=== PATIENT | male | born 1950 | race Caucasian/White ===

== ENCOUNTER → 2018-02-17 | Outpatient (CLI) | payer MEDICARE | LOC: M CLY 11:21 | DX: I51.7 Cardiomegaly (principal); I48.1 Persistent atrial fibrillation | CPT/HCPCS: 71046 ==

== ENCOUNTER → 2018-02-17 | Outpatient (REF) | payer MEDICARE ==
[2018-02-17 16:59] LABS: BASO % 0.8 % (0.0-1.0); EOS # 0.2 10^3/uL (0.0-0.50); EOS % 3.2 % (0.0-3.0); HEMATOCRIT 48.1 % (42.0-52.0); HEMOGLOBIN 15.8 g/dl (13.5-17.5); IMMATURE GRANULOCYTE % 0.2 % (0-3.0); LYMPH # 1.4 10^3/uL (1.5-4.5); LYMPH % 26.7 % (24.0-44.0); MEAN CORPUSCULAR HEMOGLOBIN 28.4 pg (27.0-33.0); MEAN CORPUSCULAR HGB CONC 32.8 g/dl (32.0-36.5); MEAN CORPUSCULAR VOLUME 86.4 fl (80.0-96.0); MONO # 0.5 10^3/uL (0.0-0.8); MONO % 9.7 % (0.0-5.0); NEUTROPHILS # 3.1 10^3/uL (1.8-7.7); NEUTROPHILS % 59.4 % (36.0-66.0); PLATELET COUNT, AUTOMATED 189 10^3/uL (150-450); RED BLOOD COUNT 5.57 10^6/uL (4.30-6.10); RED CELL DISTRIBUTION WIDTH 12.6 % (11.5-14.5); WHITE BLOOD COUNT 5.3 10^3/uL (4.0-10.0)
[2018-02-17 17:37] LABS: ALBUMIN 3.7 GM/DL (3.2-5.2); ALBUMIN/GLOBULIN RATIO 1.28 (1.00-1.93); ALKALINE PHOSPHATASE 81 U/L (45-117); ALT/SGPT 33 U/L (12-78); ANION GAP 8 MEQ/L (8-16); AST/SGOT 15 U/L (7-37); BILIRUBIN,TOTAL 1.1 MG/DL (0.2-1.0); BLOOD UREA NITROGEN 16 MG/DL (7-18); CALCIUM LEVEL 8.7 MG/DL (8.8-10.2); CARBON DIOXIDE LEVEL 30 MEQ/L (21-32); CHLORIDE LEVEL 108 MEQ/L (98-107); CHOLESTEROL LEVEL 160 MG/DL (<200); CHOLESTEROL RISK RATIO 3.478 (<5); CREATININE FOR GFR 1.06 MG/DL (0.70-1.30); GLOMERULAR FILTRATION RATE > 60.0 (>49); GLUCOSE, FASTING 81 MG/DL (70-100); HDL CHOLESTEROL 46 MG/DL (>40); NON-HDL-C 114 MG/DL; POTASSIUM SERUM 4.3 MEQ/L (3.5-5.1); SODIUM LEVEL 146 MEQ/L (136-145); THYROID STIMULATING HORMONE 0.842 uIU/ML (0.358-3.740); TOTAL PROTEIN 6.6 GM/DL (6.4-8.2); TRIGLYCERIDES LEVEL 155 MG/DL (<150)
== END ==
LOC: M SFHCCLAY 11:03
DX: I48.1 Persistent atrial fibrillation (principal); M41.25 Other idiopathic scoliosis, thoracolumbar region; Z13.220 Encounter for screening for lipoid disorders; Z86.79 Personal history of other diseases of the circulatory system; G47.31 Primary central sleep apnea
CPT/HCPCS: 84443

== ENCOUNTER → 2018-04-11 | Outpatient (REF) | payer MEDICARE ==
[2018-04-11 12:39] LABS: NT-PRO BNP 191 PG/ML (<125)
== END ==
LOC: M LABDRAWC 11:18
DX: I51.7 Cardiomegaly (principal)
CPT/HCPCS: 83880

== ENCOUNTER 2018-06-19 05:55 | Day surgery (SDC) | payer MEDICARE ==
[2018-06-19] MEDS: LR 1,000 ML IV (06:46)
[2018-06-19] MEDS ORDERED: PROPOFOL 200 MG/20 ML VIAL As Ordered (07:15)
[2018-06-19] MEDS ORDERED: dexameTHASONE 4 MG/ML 1ML VIAL (J1100) As Ordered (07:15)
[2018-06-19] MEDS ORDERED: LIDOCAINE 2% INJ 100 MG/5 ML SDV (FOR ANES.) As Ordered (07:15)
[2018-06-19] MEDS ORDERED: ROCURONIUM BROMIDE 50 MG/5 ML VIAL As Ordered ×2 (07:15→08:17)
[2018-06-19] MEDS ORDERED: MIDAZOLAM INJ 2 MG/2 ML VIAL (J2250) As Ordered (07:16)
[2018-06-19] MEDS ORDERED: fentaNYL 100 MCG/2 ML INJECTION (J3010) As Ordered (07:16)
[2018-06-19] MEDS ORDERED: METOPROLOL SUCC *XL* 25MG TAB (TopROL *XL*) As Ordered (07:27)
[2018-06-19] MEDS: METOPROLOL SUCC *XL* 25MG TAB (TopROL *XL*) PO (07:29)
[2018-06-19] MEDS: ceFAZolin SOD 1 GM in D5W MINI-BAG PLUS 50 ML IV (07:50)
[2018-06-19] MEDS ORDERED: PHENYLephrine HCL 500 MCG/5 ML (100MCG/ML) SYRINGE (J2370) As Ordered (08:08)
[2018-06-19] MEDS ORDERED: ePHEDrine SULFATE 25 MG/5 ML(5MG/ML) SYRINGE As Ordered (08:08)
[2018-06-19] MEDS: BUPIVACAINE/EPIN 0.25% 30 ML VIAL As Ordered (08:18)
[2018-06-19] MEDS ORDERED: SUGAMMADEX SODIUM 500 MG/5 ML VIAL (BRIDION) As Ordered (09:04)
[2018-06-19] MEDS ORDERED: KETOROLAC 60 MG/2 ML VIAL (J1885) As Ordered (09:04)
[2018-06-19] MEDS ORDERED: ONDANSETRON 4MG/2ML VIAL (J2405) As Ordered (09:04)
[2018-06-19] MEDS ORDERED: LR 1,000 ML IV ×2 (09:30)
[2018-06-19] MEDS ORDERED: METOCLOPRAMIDE INJ 10MG/2ML VIAL (J2765) IV (09:30)
[2018-06-19] MEDS ORDERED: ONDANSETRON 4MG/2ML VIAL (J2405) IV ×2 (09:30)
[2018-06-19] MEDS ORDERED: PERCOCET 5MG/325MG TAB PO (09:30)
[2018-06-19] MEDS ORDERED: NORCO, ANEXSIA 5/325MG TABLET (HYDROcodone/ACETAMINOPHEN) PO (09:30)
[2018-06-19] MEDS ORDERED: fentaNYL 100 MCG/2 ML INJECTION (J3010) IV (09:30)
[2018-06-19] MEDS ORDERED: MORPHINE 4 MG/ML 1ML VIAL/SYRINGE (J2270) IV (09:30)
== END 2018-06-19 12:21 | disposition home or self-care (01) ==
LOC: M SDC 05:55
DX: K40.90 Unilateral inguinal hernia, without obstruction or gangrene, not specified as recurrent (principal); I48.91 Unspecified atrial fibrillation; G47.30 Sleep apnea, unspecified; Z88.1 Allergy status to other antibiotic agents; Z79.899 Other long term (current) drug therapy
CPT/HCPCS: 49650

== ENCOUNTER → 2018-09-13 | Outpatient (CLI) | payer MEDICARE ==
[~2018-09-13] MED LIST: ASPI325T25 PO; METO1TAB32 PO
--- NOTE | 2018-09-13 18:49 | REP ---
Thyroid ultrasound: The studies performed because of a thyroid nodule identified on outside CT scan. The CT scan is not available for review. The thyroid right lobe measures 6.1 x 1.9 x 2.1 cm. The thyroid left lobe measures 5.8 x 1.8 x 2.1 cm. The thyroid isthmus measures 5.5 mm thickness. The thyroid gland is diffusely enlarged. Right lobe: At the lower pole right lobe there is a larger solid mass measuring 3.1 x 1.5 x 2.0 cm. On the images presented M unable to determine whether this is extrathyroidal. Additionally, there is a second 5 mm heterogeneous nodule in the lower pole of the right lobe. Left lobe: There is a 3 mm hypoechoic nodule at the lower pole. There is a hypoechoic 3.6 mm nodule at the mid to lower pole. The thyroid parenchyma is otherwise homogeneous. Impression: There is a large solid mass at the lower pole of the right lobe measuring up to 3.1 cm. This may be extrathyroidal M unable to make this determination on the basis of the images presented. There are small nodules as described. Electronically Signed by Amor Adames MD 09/13/2018 06:41 P
== END ==
LOC: M RAD 08:50
PROVIDERS: ATTEND Family Medicine
DX: E04.1 Nontoxic single thyroid nodule (principal); R93.89 Abnormal findings on diagnostic imaging of other specified body structures

== ENCOUNTER → 2018-10-09 | Outpatient (CLI) | payer MEDICARE ==
[~2018-10-09] MED LIST changes: +ASPI-255 PO; -ASPI325T25 PO; +LIDOCAINE 1% MDV 20ML VIAL As Ordered ONE
--- NOTE | 2018-10-09 17:35 | REP ---
ULTRASOUND GUIDED RIGHT THYROID BIOPSY The procedure was performed under the direct supervision of Dr. Sparks. The patient has a history of a large solid mass at the lower pole of the right thyroid lobe measuring 3.1 cm seen on a previous ultrasound dated 09/13/2018. The risks and benefits of the procedure were explained to the patient and informed consent was obtained. The right thyroid nodule was localized using ultrasound guidance. The skin was prepped and draped in a sterile fashion. 1% lidocaine was used as a local anesthetic. Using ultrasound guidance four fine-needle aspirations were obtained using 25 gauge needles. The patient tolerated the procedure well and there were no immediate complications. After the appropriate amount of monitored convalescence the patient was discharged from the department. Reviewed by ARIA Farmer 10/09/2018 04:23 P Electronically Signed by Zeferino Sparks MD 10/09/2018 05:25 P
== END ==
LOC: M RADPRO 12:20
PROVIDERS: ATTEND Otolaryngology
DX: E04.1 Nontoxic single thyroid nodule (principal)

== ENCOUNTER → 2019-04-12 | Outpatient (REF) | payer MEDICARE ==
[~2019-04-12] MED LIST changes: -LIDOCAINE 1% MDV 20ML VIAL As Ordered ONE
[2019-04-12 17:14] LABS: FREE T4 1.01 NG/DL (0.76-1.46); THYROID STIMULATING HORMONE 1.02 uIU/ML (0.358-3.740)
== END ==
LOC: M LABDRAWC 16:30
PROVIDERS: ATTEND Otolaryngology
DX: R22.1 Localized swelling, mass and lump, neck (principal); Z79.82 Long term (current) use of aspirin

== ENCOUNTER → 2019-05-04 | Outpatient (CLI) | payer MEDICARE ==
--- NOTE | 2019-05-04 13:57 | REP ---
Clinical: Swelling. Real time maciel scale and color evaluation using linear high frequency transducer. Comparison: 09/13/2018. Findings: Right thyroid lobe measures 6.1 x 2.4 x 2.1 cm and includes 4 x 5 x 6 mm complex mid pole cyst along with 3.1 x 1.7 x 2.4 cm complex lower pole nodule and few scattered small nonspecific cysts approximately 2-3 mm. Left lobe measures 5.7 x 1.9 x 2.1 cm and includes 5 x 4 x 5.5 mm posterior lower pole nodule and 2 mm mid pole cyst. Impression: Enlarged thyroid gland with stable cysts/nodules. Electronically Signed by Josh Noel MD 05/04/2019 01:50 P
== END ==
LOC: M RAD 12:44
PROVIDERS: ATTEND Otolaryngology
DX: E04.1 Nontoxic single thyroid nodule (principal)

== ENCOUNTER → 2019-12-21 | Outpatient (CLI) | payer MEDICARE ==
--- NOTE | 2019-12-21 09:58 | REP ---
RIGHT ANKLE SERIES: Four views. HISTORY: Intractable right heel pain. FINDINGS: Four views right ankle show an intact ankle mortise. No erosive changes seen. No evidence of arthropathy. There is a fairly large os trigonum. The calcaneus is unremarkable. The Achilles tendon contour is smooth. There is some soft tissue edema in the pre-Achilles fat. This should be correlated with physical exam findings. IMPRESSION: No acute bony abnormality. Fairly large os trigonum. Soft tissue edema in the pre-Achilles fat. No plain radiographic evidence of Achilles tendinopathy. Correlation with clinical exam findings and/or MRI scanning could be considered. Electronically Signed by Zeferino Sparks MD 12/21/2019 12:47 P
== END ==
LOC: M CLY 08:14
PROVIDERS: ATTEND Family Medicine
DX: M79.671 Pain in right foot (principal)

== ENCOUNTER → 2020-06-04 | Outpatient (CLI) | payer MEDICARE ==
--- NOTE | 2020-06-04 16:14 | REP ---
INDICATION: THYROID NODULE. COMPARISON: 05/04/2019 FINDINGS: The thyroid gland is unchanged in size, shape, and echo pattern. The right lobe measures 6.1 x 2.4 x 2.1 cm and the left lobe measures 5.7 x 1.9 x 2.1 cm. The isthmus measures between 6 and 7 mm. The dominant mixed echo nodule seen in the right lobe inferiorly is unchanged. It is predominantly solid. It measures approximately 3.1 x 1.7 x 2.4 cm. Other much smaller sub cm sized scattered nodules are also seen and they are also unchanged. IMPRESSION: No significant change. <Electronically signed by Yared Felix > 06/04/20 [id number]
== END ==
LOC: M RAD 09:51
PROVIDERS: ATTEND Family Medicine
DX: E04.1 Nontoxic single thyroid nodule (principal)

== ENCOUNTER → 2020-06-20 | Outpatient (REF) | payer MEDICARE ==
[2020-06-20 12:07] LABS: BASO % 0.4 % (0.0-1.0); EOS # 0.1 10^3/uL (0.0-0.5); EOS % 2.5 % (0.0-3.0); HEMATOCRIT 47.1 % (42.0-52.0); HEMOGLOBIN 14.8 g/dl (13.5-17.5); LYMPH # 1.5 10^3/uL (1.5-5.0); LYMPH % 30.2 % (24.0-44.0); MEAN CORPUSCULAR HEMOGLOBIN 27.5 pg (27.0-33.0); MEAN CORPUSCULAR HGB CONC 31.4 g/dl (32.0-36.5); MEAN CORPUSCULAR VOLUME 87.4 fl (80.0-96.0); MONO # 0.5 10^3/uL (0.0-0.8); MONO % 10.6 % (0.0-5.0); NEUTROPHILS # 2.7 10^3/uL (1.5-8.5); NEUTROPHILS % 56.1 % (36.0-66.0); PLATELET COUNT, AUTOMATED 193 10^3/uL (150-450); RED BLOOD COUNT 5.39 10^6/uL (4.30-6.10); WHITE BLOOD COUNT 4.8 10^3/uL (4.0-10.0)
[2020-06-20 12:30] LABS: ERYTHROCYTE SEDIMENTATION RATE 2 mm/hr (0-20)
[2020-06-20 12:48] LABS: ALBUMIN 3.7 GM/DL (3.2-5.2); ALT/SGPT 34 U/L (12-78); BILIRUBIN,TOTAL 0.7 MG/DL (0.2-1.0); BLOOD UREA NITROGEN 17 MG/DL (7-18); CALCIUM LEVEL 8.9 MG/DL (8.8-10.2); CARBON DIOXIDE LEVEL 31 MEQ/L (21-32); CHLORIDE LEVEL 107 MEQ/L (98-107); CHOLESTEROL LEVEL 194 MG/DL (<200); CHOLESTEROL RISK RATIO 3.959 (<5); GLOMERULAR FILTRATION RATE > 60.0 (>49); GLUCOSE, FASTING 86 MG/DL (70-100); HDL CHOLESTEROL 49 MG/DL (>40); LDL CHOLESTEROL 110 MG/DL (<100); NON-HDL-C 145 MG/DL; POTASSIUM SERUM 4.3 MEQ/L (3.5-5.1); RHEUMATOID FACTOR QUANT < 10.0 IU/ML (<15.0); SODIUM LEVEL 141 MEQ/L (136-145); TOTAL PROTEIN 6.6 GM/DL (6.4-8.2); TRIGLYCERIDES LEVEL 175 MG/DL (<150)
[2020-06-22 20:06] LABS: ANA (HEP2) Negative (.); CYCLIC CITRULLINATED PEPTIDE 5 units (0-19)
== END ==
LOC: M SFHCCLAY 08:26
PROVIDERS: ATTEND Family Medicine
DX: E78.2 Mixed hyperlipidemia (principal); E04.1 Nontoxic single thyroid nodule; M79.641 Pain in right hand; M79.642 Pain in left hand

== ENCOUNTER → 2020-06-20 | Outpatient (CLI) | payer MEDICARE ==
--- NOTE | 2020-06-20 09:01 | REP ---
INDICATION: M79.641,M79.642, BILATERAL HAND PAIN COMPARISON: None. TECHNIQUE: There are four views of each hand. FINDINGS: There is joint space narrowing of the PIP articulations bilaterally suggestive of early osteoarthritic change. 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 The MCP articulations and carpal articulations are unremarkable bilaterally. There are no calcifications. No fracture or dislocation. IMPRESSION: Bilateral osteoarthritis as described. <Electronically signed by Amor Adames > 06/20/20 [id number]
== END ==
LOC: M CLY 08:35
PROVIDERS: ATTEND Family Medicine
DX: M19.041 Primary osteoarthritis, right hand (principal); M19.042 Primary osteoarthritis, left hand; M79.641 Pain in right hand; M79.642 Pain in left hand

== ENCOUNTER → 2020-10-21 | Outpatient (CLI) | payer MEDICARE | LOC: M PLARAD 08:41 | PROVIDERS: ATTEND Family Medicine | DX: M41.25 Other idiopathic scoliosis, thoracolumbar region (principal); M51.06 Intervertebral disc disorders with myelopathy, lumbar region; Z53.8 Procedure and treatment not carried out for other reasons ==

== ENCOUNTER → 2020-10-23 | Outpatient (CLI) | payer MEDICARE ==
--- NOTE | 2020-10-23 13:15 | REP ---
INDICATION: SCOLIOSIS. COMPARISON: None. TECHNIQUE: Sagittal T1, T2, STIR, axial T1 and T2 weighted MR images of the lumbar spine are acquired. FINDINGS: There is moderate multilevel degenerative disc disease with loss of disc height and disc desiccation seen diffusely throughout the lumbar spine. Vertebral heights are preserved. No lobo malalignments. The conus ends normally at L1 level. On the sagittal T2 weighted images, no significant canal stenosis. On the review of axial images, there is a left convex lumbar curvature. At L1-2 no significant canal or foraminal narrowing. At L2-3 loss of disc height with mild canal narrowing and moderate bilateral foraminal narrowing. At L3-4 diffuse disc bulge with darj-st-tekbcadw canal narrowing and jads-jt-pehldnlu bilateral foraminal narrowing. At L4-5 diffuse disc bulge with mild canal narrowing and moderate bilateral foraminal narrowing. At L5-S1 loss of disc height with qhindine-qg-gvytdy left and moderate right foraminal narrowing and qvlz-kd-kqdhmble canal stenosis. IMPRESSION: 1. Left convex lumbar curvature. 2. Moderate multilevel degenerative disc disease. 3. No significant canal stenosis. 4. Multilevel foraminal narrowing is biiz-mh-wtfrfftm from L1-2 through L4-5. 5. At L5-S1 loss of disc height results in greater foraminal narrowing, moderate on the right and rvnwuuld-th-xomaag on the left. <Electronically signed by Saud Renee > 10/23/20 [id number]
== END ==
LOC: M RAD 11:20
PROVIDERS: ATTEND Family Medicine
DX: M41.25 Other idiopathic scoliosis, thoracolumbar region (principal); M51.06 Intervertebral disc disorders with myelopathy, lumbar region

== ENCOUNTER → 2020-12-16 | Outpatient (CLI) | payer MEDICARE ==
--- NOTE | 2020-12-16 12:27 | REP ---
INDICATION: NODULE. COMPARISON: 06/04/2020 TECHNIQUE: Bilateral thyroid ultrasound FINDINGS: Right lobe of the thyroid gland measures 6.3 x 2.2 x 2.4 cm and the left lobe measures 4.7 x 1.6 x 1.3 cm. The isthmus measures 9 mm. There is no significant change in the size of the thyroid gland when compared to the prior exam. Once again, there is a solid nodule in the inferior pole the right lobe which today measures 3.3 x 2.7 x 1.9 cm previously 2.7 x 1.6 x 2.7 cm. This has not changed significantly. The smaller anechoic structure seen previously is unchanged. The tiny cystic structure seen previously in the left lobe is not seen today. IMPRESSION: Essentially no change with findings as described above. <Electronically signed by Yared Felix > 12/16/20 [id number]
== END ==
LOC: M RAD 10:18
PROVIDERS: ATTEND Family Medicine
DX: E04.1 Nontoxic single thyroid nodule (principal)

== ENCOUNTER → 2021-05-18 | Outpatient (CLI) | payer MEDICARE | LOC: M LABSMTC 10:18 | PROVIDERS: ATTEND Anesthesiology | DX: Z01.818 Encounter for other preprocedural examination (principal); Z11.52 Encounter for screening for COVID-19 ==

== ENCOUNTER 2021-05-22 07:21 | Day surgery (SDC) | payer MEDICARE ==
[~2021-05-22] VITALS: Ht 193 cm; Wt 93.9 kg
[~2021-05-22 07:21] MED LIST changes: +NS 1,000 ML IV ONE
--- OUTSIDE RECORDS SUMMARY | 2021-05-22 07:25 | CCD ---
Author Author [facility] Organization [facility] Address Unknown Phone Unavailable Support Name Relationship Address Phone RE Next Of Kin Unknown Unavailable SELF EMPLOYED Next Of Kin [address] [place] [address] [employer] Next Of Kin [address] [place], [place] [address] [employer] Next Of Kin [address] [place] [address] DENNIS OROZCO Next Of Kin Unknown [phone] [employer] Next Of Kin [address] [place] [address] HENIR JAZMINEAGRET Next Of Kin [address] [place] [address] HenirJazmineagret ECON [address] [place] [address] Unavailable Re-disclosure Warning The records that you are about to access may contain information from federally-assisted alcohol or drug abuse programs. If such information is present, then the following federally mandated warning applies: This information has been disclosed to you from records protected by federal confidentiality rules (42 CFR part 2). The federal rules prohibit you from making any further disclosure of this information unless further disclosure is expressly permitted by the written consent of the person to whom it pertains or as otherwise permitted by 42 CFR part 2. A general authorization for the release of medical or other information is NOT sufficient for this purpose. The Federal rules restrict any use of the information to criminally investigate or prosecute any alcohol or drug abuse patient.The records that you are about to access may contain highly sensitive health information, the redisclosure of which is protected by Article 27-F of the [facility] Public Health law. If you continue you may have access to information: Regarding HIV / AIDS; Provided by facilities licensed or operated by the [facility] Office of Mental Health; or Provided by the [facility] Office for People With Developmental Disabilities. If such information is present, then the following [facility] mandated warning applies: This information has been disclosed to you from confidential records which are protected by state law. State law prohibits you from making any further disclosure of this information without the specific written consent of the person to whom it pertains, or as otherwise permitted by law. Any unauthorized further disclosure in violation of state law may result in a fine or fdc sentence or both. A general authorization for the release of medical or other information is NOT sufficient authorization for further disc losure. Family History Family Member Name Family Member Gender Family Member Status Date o f Status Description Data Source(s) Unknown Unknown Problem MEDENT ([facility]) Unknown Male Problem MEDENT ([facility]) Unknown Unknown Problem MEDENT ([facility]) mom, mgf, brothers Encounters Encounter Providers Location Date Indications Data Source(s ) Outpatient [address] [facility] [id number] 12/19/2020 12:00:00 AM EDT eCW1 ([facility]) Unknown [address] [facility] [address] [address] 12/05/2020 12:00:00 AM EDT eCW1 ([facility]) Unknown [address] [facility] [address] [address] 10/23/2020 12:00:00 AM EDT eCW1 ([facility]) Outpatient [address] [facility] [address] [address] 10/02/2020 12:00:00 AM EDT eCW1 ([facility]) Unknown [address] [facility] [address] [address] 09/30/2020 12:00:00 AM EDT eCW1 ([facility]) Unknown [address] [facility] [address] [address] 09/29/2020 12:00:00 AM EDT eCW1 ([facility]) Outpatient [address] [facility] [id number] 06/20/2020 12:00:00 AM EST eCW1 ([facility]) Unknown [address] [facility] [place] [address] 06/04/2020 12:00:00 AM EST eCW1 ([facility]) [place] [address] [facility] [place] [address] 04/11/2020 12:00:00 AM EDT eCW1 ([facility]) Immunizations Vaccine Date Status Description Data Source(s) COVID-19 VACCINE Moderna 05/19/2021 12:00:00 AM EST completed [facility] Vaccine Series Complete: YESThis Data wa s Submitted to [facility] Via [facility]. COVID-19 dose #2 given elsewhere Unspecified 09/08/2020 08:1 2:00 AM EST completed eCW1 ([facility]) COVID-19 VACCINE Moderna 08/27/2020 12:00:00 AM EST completed [facility] Vaccine Series Complete: YESThis Data wa s Submitted to [facility] Via [facility]. COVID-19 VACCINE, MRNA-1273, LNP-S (MODERNA)/PF 08/27/2020 1 2:00:00 AM EST completed [facility] COVID-19 dose #1 given elsewhere Unspecified 08/18/2020 08:1 2:00 AM EST completed eCW1 ([facility]) COVID-19 VACCINE Moderna 07/30/2020 12:00:00 AM EST completed [facility] Vaccine Series Complete: NOThis Data was Submitted to [facility] Via [facility]. COVID-19 VACCINE, MRNA-1273, LNP-S (MODERNA)/PF 07/30/2020 1 2:00:00 AM EST completed [facility] VARICELLA-ZOSTER VIRUS GLYCOPROTEIN E,REC/AS01B ADJUVA NT/PF 07/06/2020 12:00:00 AM EST completed [facility] influenza, recombinant, quadrIvalent,injectable, prese rvative free 04/11/2020 04:44:00 PM EDT completed eCW1 ([facility]) influenza, recombinant, quadrIvalent,injectable, prese rvative free 04/11/2020 04:44:00 PM EDT completed eCW1 ([facility]) influenza, recombinant, quadrIvalent,injectable, prese rvative free 04/11/2020 04:44:00 PM EDT completed eCW1 ([facility]) influenza, recombinant, quadrIvalent,injectable, prese rvative free 04/11/2020 04:44:00 PM EDT completed eCW1 ([facility]) influenza, recombinant, quadrIvalent,injectable, prese rvative free 04/11/2020 04:44:00 PM EDT completed eCW1 ([facility]) influenza, recombinant, quadrIvalent,injectable, prese rvative free 04/11/2020 04:44:00 PM EDT completed eCW1 ([facility]) influenza, recombinant, quadrIvalent,injectable, prese rvative free 04/11/2020 04:44:00 PM EDT completed eCW1 ([facility]) influenza, recombinant, quadrIvalent,injectable, prese rvative free 04/11/2020 04:44:00 PM EDT completed eCW1 ([facility]) influenza, recombinant, quadrIvalent,injectable, prese rvative free 04/11/2020 04:44:00 PM EDT completed eCW1 ([facility]) influenza, recombinant, quadrIvalent,injectable, prese rvative free 04/11/2020 04:44:00 PM EDT completed eCW1 ([facility]) Medications Medication Brand Name Start Date Product Form Dose Route Admi nistrative Instructions Pharmacy Instructions Status Indications Reaction Description Data Source(s) 100 mcg/0.5 mL 05/19/2021 12:00:00 AM EST suspension 0 INJECT DIRECTED PER STANDING ORDER INJECT DIRECTED PER STANDING ORDER SOLD: 05/19/2021 [facility] SUPREP BOWEL PREP KIT 17.5-3.13-1.6 gram SODIUM, POTASSIUM,M AG SULFATES 05/19/2021 12:00:00 AM EST recon soln 354 TAKE PER DOCTO R'S PREP INSTRUCTIONS TAKE PER DOCTOR'S PREP INSTRUCTIONS SOLD: 05/19/2021 [facility] 240 mcg/0.7 mL 04/15/2021 12:00:00 AM EDT syringe 0 DIRECTED INJECTION LEFT ARM DIRECTED INJECTION LEFT ARM SOLD: 04/15/2021 [facility] Suprep Bowel Prep Kit Suprep Bowel Prep Kit 04/14/2021 12:00:00 AM EDT active MEDENT ([facility], ) Bisacodyl 5 MG Delayed Release Oral Tablet [Dulcolax] Dulcol ax 04/14/2021 12:00:00 AM EDT ORAL active M EDENT ([facility], ) Physical Therapy evaluate and treat UNK 09/30/2020 12:00:00 AM EDT active Physical Therapy evaluate and tr eat eCW1 ([facility]) Insurance Providers Payer name Policy type / Coverage type Policy ID Covered libertarian ID Covered libertarian's relationship to selby Policy Selby Plan Information MEDICARE BLUE PPO 306 [id number] SP [id number] EXCELL[employer] BS MEDICARE [id number] [place] [id number] [facility] [id number] [place] [id number] [facility] BCBS MEDICARE [id number] [place] [id number] MEDICARE BLUE PPO 306 [id number] SP [id number] Blue Shield Medicare P [id number] SELF [id number] Blue Shield Medicare P [id number] SELF [id number] Medicare Blue Ppo Commercial [id number] Self [id number] BS Medicare Blue U/W Commercial [id number] Self V [id number] BS Medicare Blue U/W Commercial [id number] Self V [id number] [facility]-Medicare Part B [id number] ANSI-Medicare Part B [id number] ANSI-Medicare Part B [id number] ANSI-Medicare Part B [id number] [facility] MEDICARE Medicare MC MC ANSI-Medicare Part B [id number] ANSI-Medicare Part B [id number] ANSI-Medicare Part B [id number] ANSI-Medicare Part B [id number] ANSI-Medicare Part B [id number] ANSI-Medicare Part B [id number] [facility] Medicare Blue U/W Commercial [id number] Self V [id number] ANSI-Medicare Part B [id number] ANSI-Medicare Part B [id number] BCBS Medicare Blue U/W Commercial [id number] Self V [id number] BCBS Medicare Blue U/W Commercial [id number] Self V [id number] ANSI-Medicare Part B [id number] ANSI-Medicare Part B [id number] ANSI-Medicare Part B [id number] ANSI-Medicare Part B [id number] MEDICARE [id number] SP [id number] MEDICARE BLUE PPO 306 [id number] SP [id number] Medicare Natl Gov't Servi Medicare Primary [id number] Self [id number] MEDICARE BLUE PPO 306 [id number] SP [id number] [facility] [id number] S VYM [id number] MEDICARE BLUE PPO 306 [id number] SP [id number] ANSI-Medicare Part B [id number] ANSI-Medicare Part B [id number] Medicare Blue Ppo Commercial [id number] Self [id number] Problems, Conditions, and Diagnoses Code Display Name Description Problem Type Effective Dates Data Source(s) 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 Prob andrea 09/29/2020 12:00:00 AM EDT eCW1 ([facility]) E78.2 [id number] Mixed hyperlipidemia Problem 06/20/2020 12:0 0:00 AM EST eCW1 ([facility]) Surgeries/Procedures No Information Results ID Date Data Source VIRGILIO HAND COMPLETE 06/20/2020 12:00:00 AM EST eCW1 ([facility]) Name Value Range Interpretation Code Description Data Alice rce(s) Supporting Document(s) eCW1 ([facility]) ID Date Data Source CYCLIC CITRULLINATED PEPTIDE 06/20/2020 12:00:00 AM EST eCW1 ([facility]) Name Value Range Interpretation Code Description Data Alice rce(s) Supporting Document(s) 5 0-19 eCW1 ([facility]) ID Date Data Source PAT TITER & PATTERN 06/20/2020 12:00:00 AM EST eCW1 ([facility]) Name Value Range Interpretation Code Description Data Alice rce(s) Supporting Document(s) Negative . eCW1 ([facility]) ID Date Data Source RHEUMATOID FACTOR QUANT 06/20/2020 12:00:00 AM EST eCW1 ([facility]) Name Value Range Interpretation Code Description Data Alice rce(s) Supporting Document(s) < 10.0 <15.0 eCW1 ([facility]) ID Date Data Source TSH 06/20/2020 12:00:00 AM EST eCW1 ([facility]) Name Value Range Interpretation Code Description Data Alice rce(s) Supporting Document(s) 2.220 0.358-3.740 eCW1 ([facility]) ID Date Data Source LIPID PANEL (CARDIAC RISK) 06/20/2020 12:00:00 AM EST eCW1 ( [facility]) Name Value Range Interpretation Code Description Data Alice rce(s) Supporting Document(s) Cholesterol [Moles/volume] in Serum or Plasma 194 <200 CHOLESTEROL LEVEL eCW1 ([facility]) Triglyceride [Mass/volume] in Serum or Plasma by calculation 175 <150 TRIGLYCERIDES LEVEL eCW1 ([facility]) Cholesterol in LDL [Mass/volume] in Serum or Plasma by calculation 110 <100 LDL CHOLESTEROL eCW1 ([facility]) Cholesterol in HDL [Moles/volume] in Serum or Plasma 49 >40 HDL CHOLESTEROL eCW1 ([facility]) 145 NON-HDL-C eCW1 ([facility]) 3.959 <5 CHOLESTEROL RISK RATIO eCW1 ([facility]) ID Date Data Source ERYTHROCYTE SEDIMENTATION RATE 06/20/2020 12:00:00 AM EST eC W1 ([facility]) Name Value Range Interpretation Code Description Data Alice rce(s) Supporting Document(s) 2 0-20 eCW1 ([facility]) ID Date Data Source C REACTIVE PROTEIN QUANTITATIV (At [facility]) 06/20/2020 12:00 :00 AM EST eCW1 ([facility]) Name Value Range Interpretation Code Description Data Alice rce(s) Supporting Document(s) 0.30 0.00-0.30 eCW1 ([facility]) ID Date Data Source Comprehensive Metabolic Profile (CMP) 06/20/2020 12:00:00 AM EST eCW1 ([facility]) Name Value Range Interpretation Code Description Data Alice rce(s) Supporting Document(s) 86 70-100 GLUCOSE, FASTING eCW1 ([facility]) 0.90 0.70-1.30 CREATININE FOR GFR eCW1 ([facility]) 17 7-18 BLOOD UREA NITROGEN eCW1 ([facility]) > 60.0 >49 GLOMERULAR FILTRATION RATE eCW 1 ([facility]) 141 136-145 SODIUM LEVEL eCW1 ([facility]) 4.3 3.5-5.1 POTASSIUM SERUM eCW1 ([facility]) 107 98-107 CHLORIDE LEVEL eCW1 ([facility]) 31 21-32 CARBON DIOXIDE LEVEL eCW1 ([facility]) 17 7-37 AST/SGOT eCW1 ([facility]) 8.9 8.8-10.2 CALCIUM LEVEL eCW1 ([facility]) 92 45-117 ALKALINE PHOSPHATASE eCW1 ([facility]) 34 12-78 ALT/SGPT eCW1 ([facility]) 6.6 6.4-8.2 TOTAL PROTEIN eCW1 ([facility]) 0.7 0.2-1.0 BILIRUBIN,TOTAL eCW1 ([facility]) 3.7 3.2-5.2 ALBUMIN eCW1 ([facility]) 1.3 ALBUMIN/GLOBULIN RATIO eCW1 ([facility]) ID Date Data Source CBC with Differential 06/20/2020 12:00:00 AM EST eCW1 ([facility]) Name Value Range Interpretation Code Description Data Alice rce(s) Supporting Document(s) 47.1 42.0-52.0 eCW1 ([facility]) 5.39 4.30-6.10 eCW1 ([facility]) 4.8 4.0-10.0 eCW1 ([facility]) 14.8 13.5-17.5 eCW1 ([facility]) 27.5 27.0-33.0 eCW1 ([facility]) 87.4 80.0-96.0 eCW1 ([facility]) 31.4 32.0-36.5 eCW1 ([facility]) 12.3 11.5-14.5 eCW1 ([facility]) 193 150-450 eCW1 ([facility]) 56.1 36.0-66.0 eCW1 ([facility]) 10.6 0.0-5.0 eCW1 ([facility]) 30.2 24.0-44.0 eCW1 ([facility]) 0.4 0.0-1.0 eCW1 ([facility]) 2.5 0.0-3.0 eCW1 ([facility]) 2.7 1.5-8.5 eCW1 ([facility]) 1.5 1.5-5.0 eCW1 ([facility]) 0.5 0.0-0.8 eCW1 ([facility]) 0.1 0.0-0.5 eCW1 ([facility]) 0.0 0.0-0.2 eCW1 ([facility]) Procedure Social History Code Duration Value Status Description Data Source(s ) Smoking 12/19/2020 12:00:00 AM EDT Never Smoker completed Never S moker eCW1 ([facility]) Smoking 10/02/2020 12:00:00 AM EDT Never Smoker completed Never S moker eCW1 ([facility]) Smoking 10/02/2020 12:00:00 AM EDT Never Smoker completed Never S moker eCW1 ([facility]) Smoking 10/02/2020 12:00:00 AM EDT Never Smoker completed Never S moker eCW1 ([facility]) Smoking 10/02/2020 12:00:00 AM EDT Never Smoker completed Never S moker eCW1 ([facility]) Smoking 06/20/2020 12:00:00 AM EST Never Smoker completed Never S moker eCW1 ([facility]) Smoking 06/20/2020 12:00:00 AM EST Never Smoker completed Never S moker eCW1 ([facility]) Vital Signs ID Date Data Source UNK Name Value Range Interpretation Code Description Data Source(s) Systolic blood pressure 108 mm[Hg] 108 mm[Hg] M EDENT ([facility]) Diastolic blood pressure 72 mm[Hg] 72 mm[Hg] [facility] Body height 76 [in_i] 76 [facility] 6'4" Body weight 197.00 [lb_av] 197.00 [lb_av] MEDEN T ([facility]) Body mass index (BMI) [Ratio] 24.0 kg/m2 24.0 k g/m2 [facility] ([facility]) [place] body weight 202 [lb_av] 202 [lb_av] [facility] Body weight 89.359 kg 89.359 kg [facility] ([facility]) Body surface area Derived from formula 2.20 m2 2.20 m2 [facility] ([facility]) Body weight 200.8 [lb_av] 200.8 [lb_av] eCW1 ([facility]) Body height [in_i] eCW1 ([facility]) Body mass index (BMI) [Ratio] 24.44 kg/m2 24.44 kg/m2 eCW1 ([facility]) Heart rate 76 /min 76 /min eCW1 ([facility]) Respiratory rate 16 /min 16 /min eCW1 ([facility]) Body temperature 96.3 [degF] 96.3 [degF] eCW1 ( [facility]) Systolic blood pressure 130 mm[Hg] 130 mm[Hg] e CW1 ([facility]) Diastolic blood pressure 70 mm[Hg] 70 mm[Hg] eCW1 ([facility]) Body weight 204 [lb_av] 204 [lb_av] eCW1 ([facility]) Body height [in_i] eCW1 ([facility]) Body mass index (BMI) [Ratio] 24.83 kg/m2 24.83 kg/m2 eCW1 ([facility]) Heart rate 67 /min 67 /min eCW1 ([facility]) Respiratory rate 16 /min 16 /min eCW1 ([facility]) Body temperature 97.2 [degF] 97.2 [degF] eCW1 ( [facility]) Systolic blood pressure 138 mm[Hg] 138 mm[Hg] e CW1 ([facility]) Diastolic blood pressure 78 mm[Hg] 78 mm[Hg] eCW1 ([facility]) Body weight 201.8 [lb_av] 201.8 [lb_av] eCW1 ([facility]) Body height [in_i] eCW1 ([facility]) Body mass index (BMI) [Ratio] 24.56 kg/m2 24.56 kg/m2 eCW1 ([facility]) Heart rate 57 /min 57 /min eCW1 ([facility]) Respiratory rate 16 /min 16 /min eCW1 ([facility]) Body temperature 95.8 [degF] 95.8 [degF] eCW1 ( [facility]) Systolic blood pressure 112 mm[Hg] 112 mm[Hg] e CW1 ([facility]) Diastolic blood pressure 72 mm[Hg] 72 mm[Hg] eCW1 ([facility]) Patient Treatment Plan of Care Planned Activity Planned Date Details Description Data Source (s) Physical Therapy evaluate and treat 09/30/2020 12:00:00 AM EDT eCW1 ([facility])
--- OUTSIDE RECORDS SUMMARY | 2021-05-22 07:25 | CCD | Continuity of Care Document ---
Author Author Cheng [facility] Organization Unknown Address [address] [place] [address], [address] [place] [address] Phone [phone] Care Team Providers Care Strip Catcher Name Role Phone RaheellizettjoaomacMoose D.O. AUTM [phone] Problems Active Problems Provider Date Mass of neck Ritesh Saavedra MD Onset: 09/28/2018 Allergic rhinitis Ritesh Saavedra MD Onset: 09/28/2018 Deviated nasal septum Ritesh Saavedra MD Onset: 09/28/2018 Acquired coagulation factor deficiency Ritesh Saavedra MD O nset: 09/28/2018 Sleep apnea Ritesh Saavedra MD Onset: 09/28/2018 Inguinal hernia Ezekiel Rose JR, MD Onset: 10/18/2018 Social History Type Date Description Comments Sex Unknown Smokeless Tobacco Never Used Smokeless Tobacco ETOH Use Denies alcohol use Tobacco Use Start: Unknown Denies Smoking Recreational Drug Use Denies Drug Use Allergies and adverse reactions Active Allergies Criticality Reaction | Severity Comments Date Erythromycin Unable to assess criticality RED RAISED BUMPS 02/01/2018 Medications Active Medications SIG Qnty Indications Ordering Provide r Date Suprep Bowel Prep Kit 17.5-3.13-1.6GM/177ML Solution take per doctor's bowel prep instructions. 354ml Z12.1 1 Josr Carias MD 04/14/[address] take 4 tabs by mouth prior to procedure per instructions. 4tabs Z12.11 Josr Carias MD 04/14/2021 Advil 200mg Tablets prn Unknown Zyrtec-D 1t/d prn Unknown Flonase prn Unknown Immunizations Description No Information Available Vital Signs Date Vital Result Comment 04/14/2021 8:49am BP Systolic 108 mmHg BP Diastolic 72 mmHg Height 76 inches 6'4" Weight 197.00 lb BMI (Body Mass Index) 24.0 kg/m2 [place] Body Weight 202 lb Weight 89.359 kg BSA (Body Surface Area) 2.20 m2 10/18/2018 11:20am Height 76 inches 6'4" Weight 214.00 lb BMI (Body Mass Index) 26.0 kg/m2 [place] Body Weight 202 lb Weight 97.070 kg BSA (Body Surface Area) 2.28 m2 Results Description No Information Available Procedures Description No Information Available Medical Devices Description No Information Available Encounters Description No Information Available Assessments Date Code Description Provider 04/14/2021 Z12.11 Encounter for screening for sancho gnant neoplasm of colon KEELY Quintanilla Plan of Treatment 04/14/2021 - KEELY Quintanilla* Z12.11 Encounter for screening for malignant neoplasm of colon * * New Medication:* Suprep Bowel Prep Kit 17.5-3.13-1.6 GM/177ML * Dulcolax 5 mg * New Orders:* Colonoscopy, Ordered: 04/14/21 * Comments:* Will arrange for colonoscopy. Reviewed risks and benefits of the procedure, as well as other options, with the patient. Bowel prep procedure was discussed with patient, as well as risks and side effects associated with the bowel prep. Patient verbalized understanding of all of the above and is in agreement to proceed. Patient will seek medical attention for any acute changes. Will monitor. * Follow up:* As scheduled, sooner if needed. Functional Status Description No Information Available Mental Status Description No Information Available Referrals Refer to Reason for Referral Status Appt Date Thiago Rivera M.D. COLO SCREENING Scheduled 04/14 [facility] [address] [facility], [address] [place] [address] [phone]
[2021-05-22] MEDS ORDERED: propofoL 200 MG/20 ML VIAL As Ordered ONE ×2 (08:01→09:20)
[2021-05-22] MEDS ORDERED: LIDOCAINE 2% 100MG/5ML SDV (FOR ANES.) As Ordered ONE (08:01)
--- NOTE | 2021-05-22 09:39 | ROOR ---
Patient Name: Cheng Alexandre Procedure Date: 05/22/2021 8:50 AM Date of : 1950 Age: 71 Room: [facility] Gender: Male Note Status: Finalized Procedure: Colonoscopy Indications: Screening for colorectal malignant neoplasm Providers: Thiago Rivera MD Referring MD: SHALONDA DUNN DO Requesting Provider: Medicines: Monitored Anesthesia Care Complications: No immediate complications. Procedure: Pre-Anesthesia Assessment: - Prior to the procedure, a History and Physical was performed, and patient medications and allergies were reviewed. The patient is competent. The risks and benefits of the procedure and the sedation options and risks were discussed with the patient. All questions were answered and informed consent was obtained. Patient identification and proposed procedure were verified by the physician, the nurse and the anesthesiologist in the procedure room. Mental Status Examination: alert and oriented. Airway Examination: normal oropharyngeal airway and neck mobility. Respiratory Examination: clear to auscultation. CV Examination: normal. Prophylactic Antibiotics: The patient does not require prophylactic antibiotics. Prior Anticoagulants: The patient has taken no previous anticoagulant or antiplatelet agents. ASA Grade Assessment: II - A patient with mild systemic disease. After reviewing the risks and benefits, the patient was deemed in satisfactory condition to undergo the procedure. The anesthesia plan was to use monitored anesthesia care (MAC). Immediately prior to administration of medications, the patient was re-assessed for adequacy to receive sedatives. The heart rate, respiratory rate, oxygen saturations, blood pressure, adequacy of pulmonary ventilation, and response to care were monitored throughout the procedure. The physical status of the patient was re-assessed after the procedure. The Colonoscope was introduced through the anus and advanced to the terminal ileum, with identification of the appendiceal orifice and IC valve. The colonoscopy was performed without difficulty. The patient tolerated the procedure well. The quality of the bowel preparation was good. The terminal ileum, ileocecal valve, appendiceal orifice, and rectum were photographed. Scope insertion time was 2 minutes. Scope withdrawal time was 9 minutes. The total duration of the procedure was 12 minutes. Findings: The perianal and digital rectal examinations were normal. The terminal ileum appeared normal. Six sessile polyps were found in the recto-sigmoid colon, ascending colon and cecum. The polyps were 5 to 12 mm in size. These polyps were removed with a hot snare. Resection and retrieval were complete. Verification of patient identification for the specimen was done by the physician and nurse using the patient's name, date and medical record number. Estimated blood loss was minimal. Many small-mouthed diverticula were found in the sigmoid colon. There was no evidence of diverticular bleeding. Non-bleeding external and internal hemorrhoids were found during retroflexion. The hemorrhoids were medium-sized. Impression: - The examined portion of the ileum was normal. - Six 5 to 12 mm polyps at the recto-sigmoid colon, in the ascending colon and in the cecum, removed with a hot snare. Resected and retrieved. - Moderate diverticulosis in the sigmoid colon. There was no evidence of diverticular bleeding. - Non-bleeding external and internal hemorrhoids. Recommendation: - Patient has a contact number available for emergencies. The signs and symptoms of potential delayed complications were discussed with the patient. Return to normal activities tomorrow. Written discharge instructions were provided to the patient. - High fiber diet. - Continue present medications. - Await pathology results. - Repeat colonoscopy in 3 years for surveillance based on pathology results. - Telephone GI clinic for pathology results in 2 weeks. - Return to primary care physician. Procedure Code(s): --- Professional --- 78130, Colonoscopy, flexible; with removal of tumor(s), polyp(s), or other lesion(s) by snare technique Diagnosis Code(s): --- Professional --- Z12.11, Encounter for screening for malignant neoplasm of colon K64.8, Other hemorrhoids K63.5, Polyp of colon K57.30, Diverticulosis of large intestine without perforation or abscess without bleeding CPT copyright 2019 [employer]. All rights reserved. The codes documented in this report are preliminary and upon media coordinator review may be revised to meet current compliance requirements. Thiago Rivera MD Thiago Rivera MD 05/22/2021 9:38:54 AM Electronically signed by Thiago Rivera MD Number of Addenda: 0 Note Initiated On: 05/22/2021 8:50 AM Estimated Blood Loss: Estimated blood loss was minimal.
[2021-05-22 09:56] VITALS: BP 107/70
== END 2021-05-22 10:10 | disposition home or self-care (01) ==
LOC: M OPP 07:21
PROVIDERS: ATTEND Internal Medicine Gastroenterology
DX: D12.6 Benign neoplasm of colon, unspecified (principal); K64.8 Other hemorrhoids; K57.30 Diverticulosis of large intestine without perforation or abscess without bleeding; Z12.11 Encounter for screening for malignant neoplasm of colon; I48.91 Unspecified atrial fibrillation; Z86.718 Personal history of other venous thrombosis and embolism; G47.33 Obstructive sleep apnea (adult) (pediatric); Z79.899 Other long term (current) drug therapy

== ENCOUNTER → 2021-06-25 | Outpatient (REF) | payer MEDICARE ==
[~2021-06-25] MED LIST changes: -NS 1,000 ML IV ONE
[2021-06-25 12:33] LABS: ALBUMIN 3.6 GM/DL (3.2-5.2); ALT/SGPT 40 U/L (12-78); BLOOD UREA NITROGEN 10 MG/DL (7-18); CALCIUM LEVEL 8.6 MG/DL (8.8-10.2); CARBON DIOXIDE LEVEL 31 MEQ/L (21-32); CHLORIDE LEVEL 105 MEQ/L (98-107); CHOLESTEROL LEVEL 170 MG/DL (<200); CHOLESTEROL RISK RATIO 3.333 (<5); CREATININE FOR GFR 0.87 MG/DL (0.70-1.30); FREE T4 1.13 NG/DL (0.76-1.46); GLOMERULAR FILTRATION RATE > 60.0 (>42); GLUCOSE, FASTING 101 MG/DL (70-100); HDL CHOLESTEROL 51 MG/DL (>40); LDL CHOLESTEROL 100 MG/DL (<100); NON-HDL-C 119 MG/DL; POTASSIUM SERUM 4.5 MEQ/L (3.5-5.1); SODIUM LEVEL 140 MEQ/L (136-145); TOTAL PROTEIN 6.7 GM/DL (6.4-8.2); TRIGLYCERIDES LEVEL 95 MG/DL (<150)
== END ==
LOC: M SFHCCLAY 09:00
PROVIDERS: ATTEND Family Medicine
DX: E04.1 Nontoxic single thyroid nodule (principal); E78.2 Mixed hyperlipidemia

== ENCOUNTER → 2022-01-25 | Outpatient (CLI) | payer MEDICARE | LOC: M RAD 12:33 | PROVIDERS: ATTEND Family Medicine | DX: E04.1 Nontoxic single thyroid nodule (principal) ==

== ENCOUNTER → 2022-07-23 | Outpatient (REF) | payer MEDICARE ==
[2022-07-23 11:21] LABS: BASO % 0.2 % (0.0-1.0); EOS # 0.1 10^3/uL (0.0-0.5); EOS % 2.5 % (0.0-3.0); HEMATOCRIT 49.9 % (42.0-52.0); HEMOGLOBIN 15.7 g/dl (13.5-17.5); LYMPH # 1.2 10^3/uL (1.5-5.0); LYMPH % 25.5 % (24.0-44.0); MEAN CORPUSCULAR HEMOGLOBIN 27.7 pg (27.0-33.0); MEAN CORPUSCULAR HGB CONC 31.5 g/dl (32.0-36.5); MEAN CORPUSCULAR VOLUME 88.2 fl (80.0-96.0); MONO # 0.5 10^3/uL (0.0-0.8); MONO % 10.9 % (2.0-8.0); NEUTROPHILS % 60.7 % (36.0-66.0); PLATELET COUNT, AUTOMATED 201 10^3/uL (150-450); RED BLOOD COUNT 5.66 10^6/uL (4.30-6.10); WHITE BLOOD COUNT 4.9 10^3/uL (4.0-10.0)
[2022-07-23 11:46] LABS: C REACTIVE PROTEIN QUANTITATIV < 0.40 MG/DL (<1.0)
[2022-07-23 11:49] LABS: ALBUMIN 3.7 G/DL (3.2-5.2); ALKALINE PHOSPHATASE 99 U/L (46-116); ALT/SGPT 29 U/L (7.0-40); AST/SGOT 22 U/L (<34); BILIRUBIN,TOTAL 0.9 MG/DL (0.3-1.2); BLOOD UREA NITROGEN 18 MG/DL (9-23); CALCIUM LEVEL 8.3 MG/DL (8.3-10.6); CARBON DIOXIDE LEVEL 32 MMOL/L (20-31); CHLORIDE LEVEL 106 MMOL/L (98-107); CHOLESTEROL LEVEL 167 MG/DL (<200); CHOLESTEROL RISK RATIO 3.68 (<5); CREATININE FOR GFR 0.95 MG/DL (0.70-1.30); GLOMERULAR FILTRATION RATE > 60.0 (>42); GLUCOSE, FASTING 94 MG/DL (74-106); HDL CHOLESTEROL 45.3 MG/DL (>40); LDL CHOLESTEROL 101.5 MG/DL (<100); NON-HDL-C 122 MG/DL; POTASSIUM SERUM 4.3 MMOL/L (3.5-5.1); RHEUMATOID FACTOR QUANT < 3.5 IU/ML (<14); SODIUM LEVEL 140 MMOL/L (136-145); THYROID STIMULATING HORMONE 2.079 uIU/ML (0.55-4.78); TOTAL PROTEIN 6.5 G/DL (5.7-8.2); TRIGLYCERIDES LEVEL 101 MG/DL (<150)
[2022-07-23 11:56] LABS: ERYTHROCYTE SEDIMENTATION RATE 9 mm/hr (0-20)
[2022-07-24 21:06] LABS: ANA (HEP2) Negative (.); CYCLIC CITRULLINATED PEPTIDE 3 units (0-19)
== END ==
LOC: M SFHCCLAY 08:33
PROVIDERS: ATTEND Family Medicine
DX: M20.009 Unspecified deformity of unspecified finger(s) (principal); E04.1 Nontoxic single thyroid nodule; E78.2 Mixed hyperlipidemia; Z12.5 Encounter for screening for malignant neoplasm of prostate
CPT/HCPCS: 80053; 80061; 84443; 84550; 85025; 85652; 86038; 86140; 86200; 86431; G0103

== ENCOUNTER → 2022-07-23 | Outpatient (CLI) | payer MEDICARE | LOC: M CLY 08:38 | PROVIDERS: ATTEND Family Medicine | DX: M19.041 Primary osteoarthritis, right hand (principal); M19.042 Primary osteoarthritis, left hand ==

== ENCOUNTER → 2023-01-31 | Outpatient (CLI) | payer MEDICARE | LOC: M RAD 09:47 | PROVIDERS: ATTEND Family Medicine | DX: E04.1 Nontoxic single thyroid nodule (principal) ==

== ENCOUNTER → 2023-07-26 | Outpatient (REF) | payer MEDICARE ==
[2023-07-26 12:13] LABS: HEMATOCRIT 48.4 % (42.0-52.0); HEMOGLOBIN 15.5 g/dl (13.5-17.5); MEAN CORPUSCULAR HEMOGLOBIN 28.2 pg (27.0-33.0); MEAN CORPUSCULAR VOLUME 88.2 fl (80.0-96.0); PLATELET COUNT, AUTOMATED 194 10^3/uL (150-450); RED BLOOD COUNT 5.49 10^6/uL (4.30-6.10); WHITE BLOOD COUNT 4.7 10^3/uL (4.0-10.0)
[2023-07-26 12:17] LABS: C REACTIVE PROTEIN QUANTITATIV < 0.40 MG/DL (<1.0)
[2023-07-26 12:19] LABS: ALBUMIN 3.5 G/DL (3.2-5.2); ALKALINE PHOSPHATASE 87 U/L (46-116); ALT/SGPT 24 U/L (7.0-40); AST/SGOT 16 U/L (<34); BILIRUBIN,TOTAL 1.2 MG/DL (0.3-1.2); BLOOD UREA NITROGEN 14 MG/DL (9-23); CALCIUM LEVEL 8.2 MG/DL (8.3-10.6); CARBON DIOXIDE LEVEL 32 MMOL/L (20-31); CHLORIDE LEVEL 108 MMOL/L (98-107); CHOLESTEROL LEVEL 159 MG/DL (<200); CHOLESTEROL RISK RATIO 3.69 (<5); CREATININE FOR GFR 0.87 MG/DL (0.70-1.30); GLOMERULAR FILTRATION RATE > 60.0 (>42); GLUCOSE, FASTING 92 MG/DL (74-106); POTASSIUM SERUM 4.2 MMOL/L (3.5-5.1); PSA SCREENING 3.63 NG/ML (< 4.00); RHEUMATOID FACTOR QUANT < 3.5 IU/ML (<14); SODIUM LEVEL 140 MMOL/L (136-145); TOTAL PROTEIN 6.3 G/DL (5.7-8.2); TRIGLYCERIDES LEVEL 130 MG/DL (<150)
[2023-07-26 12:26] LABS: ERYTHROCYTE SEDIMENTATION RATE 5 mm/hr (0-20)
[2023-07-28 00:07] LABS: ANA (HEP2) Negative (.); CYCLIC CITRULLINATED PEPTIDE 7 units (0-19)
== END ==
LOC: M SFHCCLAY 08:37
PROVIDERS: ATTEND Family Medicine
DX: E78.2 Mixed hyperlipidemia (principal); Z12.5 Encounter for screening for malignant neoplasm of prostate; M19.90 Unspecified osteoarthritis, unspecified site
CPT/HCPCS: 80053; 80061; 85027; 85652; 86038; 86140; 86200; 86431; G0103

== ENCOUNTER → 2023-11-21 | Outpatient (CLI) | payer MEDICARE | LOC: M SOG 07:53 | PROVIDERS: ATTEND Physician Assistant | DX: M79.642 Pain in left hand (principal) ==

== ENCOUNTER → 2024-07-17 | Outpatient (REF) | payer MEDICARE ==
[2024-07-17 12:06] LABS: ALBUMIN 3.7 G/DL (3.2-5.2); ALKALINE PHOSPHATASE 94 U/L (40-129); ALT/SGPT 26 U/L (7.0-40); AST/SGOT 18 U/L (<34); BLOOD UREA NITROGEN 19 MG/DL (9-23); CALCIUM LEVEL 8.1 MG/DL (8.3-10.6); CARBON DIOXIDE LEVEL 30 MMOL/L (20-31); CHLORIDE LEVEL 109 MMOL/L (98-107); CHOLESTEROL LEVEL 177 MG/DL (<200); CHOLESTEROL RISK RATIO 4.01 (<5); CREATININE FOR GFR 0.85 MG/DL (0.70-1.30); GLOMERULAR FILTRATION RATE > 60.0 (>42); GLUCOSE, FASTING 101 MG/DL (74-106); HDL CHOLESTEROL 44.1 MG/DL (>40); LDL CHOLESTEROL 111.3 MG/DL (<100); NON-HDL-C 132.9 MG/DL; POTASSIUM SERUM 4.5 MMOL/L (3.5-5.1); SODIUM LEVEL 143 MMOL/L (136-145); THYROID STIMULATING HORMONE 1.675 uIU/ML (0.55-4.78); TOTAL PROTEIN 6.4 G/DL (5.7-8.2); TRIGLYCERIDES LEVEL 108 MG/DL (<150)
[2024-07-17 12:07] LABS: FOLATE 16.09 NG/ML (>5.4)
[2024-07-17 12:09] LABS: VITAMIN B12 LEVEL 297 PG/ML (211-911)
[2024-07-17 12:11] LABS: HEMATOCRIT 46.9 % (42.0-52.0); HEMOGLOBIN 15.4 g/dl (13.5-17.5); MEAN CORPUSCULAR HEMOGLOBIN 28.4 pg (27.0-33.0); MEAN CORPUSCULAR HGB CONC 32.8 g/dl (32.0-36.5); MEAN CORPUSCULAR VOLUME 86.5 fl (80.0-96.0); PLATELET COUNT, AUTOMATED 171 10^3/uL (150-450); RED BLOOD COUNT 5.42 10^6/uL (4.30-6.10)
== END ==
LOC: M SFHCCLAY 09:07
PROVIDERS: ATTEND Family Medicine
DX: E78.2 Mixed hyperlipidemia (principal); E04.1 Nontoxic single thyroid nodule; R68.82 Decreased libido; R20.0 Anesthesia of skin

== ENCOUNTER 2024-08-24 16:20 | Emergency (ER) | payer MEDICARE ==
[~2024-08-24] VITALS: Ht 193 cm; Wt 97.8 kg
[2024-08-24 20:28] VITALS: BP 127/81; TEMP 97.7; O2SAT 95
== END 2024-08-25 00:08 | disposition left against medical advice (07) ==
LOC: M ED 16:20
DX: Z53.21 Procedure and treatment not carried out due to patient leaving prior to being seen by health care provider (principal)

== ENCOUNTER → 2024-10-10 | Outpatient (CLI) | payer MEDICARE | LOC: M CARPUL 15:27 | PROVIDERS: ATTEND Family Medicine | DX: R06.02 Shortness of breath (principal); Z86.79 Personal history of other diseases of the circulatory system ==

== ENCOUNTER → 2024-11-19 | Outpatient (CLI) | payer MEDICARE | LOC: M EKG 13:53 | PROVIDERS: ATTEND Physician Assistant | DX: I48.3 Typical atrial flutter (principal) ==

== ENCOUNTER → 2024-11-20 | Outpatient (CLI) | payer MEDICARE | LOC: M CARPUL 11:07 | PROVIDERS: ATTEND Physician Assistant | DX: R06.02 Shortness of breath (principal) ==